=== PATIENT | male | born 1980 | race Two or more races ===

== ENCOUNTER 2021-11-12 21:12 | Emergency (ER) | payer OTHER ==
[~2021-11-12] VITALS: Ht 175.3 cm; Wt 88.6 kg
[2021-11-12 21:20] VITALS: BP 139/83
[2021-11-12] MEDS ORDERED: cefTRIAXone SOD 1,000 MG VL IM ONE (23:45)
[2021-11-12] MEDS ORDERED: methylPREDNISolone SOD SUCC 125 MG/2 ML VL IM ONE (23:45)
[2021-11-12] MEDS ORDERED: PROM1SOL4 PO (23:50)
[2021-11-12] MEDS ORDERED: AMOX500C2 PO (23:50)
== END 2021-11-13 00:25 | disposition home or self-care (01) ==
LOC: ER 21:16
DX: J03.90 Acute tonsillitis, unspecified (principal); J40 Bronchitis, not specified as acute or chronic; Z20.822 Contact with and (suspected) exposure to COVID-19
CPT/HCPCS: 36415; 71045; 87426; 93005; 96372; 99285; J0696; J2930